=== PATIENT | male | born 1995 | race Caucasian/White ===

== ENCOUNTER 2017-05-29 11:43 | Emergency (ER) | payer OTHER ==
[~2017-05-29] VITALS: Ht 170.2 cm; Wt 117.6 kg
[~2017-05-29 11:43] MED LIST: FEXO3TAB
[2017-05-29 11:46] VITALS: TEMP 36.8; Ht 170.2 cm; Wt 117.6 kg
--- NOTE | 2017-05-29 12:34 | DIAGNOSTIC IMAGING REPORT ---
LEFT RIBS UNILATERAL WITH PA CHEST (5 views) CLINICAL HISTORY: Left rib pain COMPARISON STUDY: No previous studies for comparison. FINDINGS: The erect chest reveals no pneumothorax. There is no focal pulmonary consolidation. No left-sided rib fractures are visualized. No destructive lesions are evident. IMPRESSION: No active disease in the chest. No left-sided rib fractures are visualized. No pneumothorax. Electronically signed by: Nate Duran M.D. 05/29/2017 12:33 PM Dictated Date/Time: 05/29/2017 12:32 PM
--- NOTE | 2017-05-29 12:41 | EMERGENCY ROOM VISIT NOTE ---
ED Visit Note First contact with patient: 12:10 CHIEF COMPLAINT: Left rib pain HISTORY OF PRESENT ILLNESS: This 22-year-old male presents the ER with chief complaint of left upper rib pain. 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 The patient denies any shortness of breath. The patient denies any pain down his arms or any numbness and tingling. The patient has not taken anything for pain. The patient states that his work made him come here. REVIEW OF SYSTEMS: 6 system review was performed and was negative unless stated otherwise in history of present illness. PMH: The patient is healthy; there is no significant medical or surgical history. SOCIAL HISTORY: Patient lives with his . The patient admits to tobacco use but denies any alcohol use. PHYSICAL EXAM: Vital Signs: Were reviewed Reviewed Nurse's notes. GEN.: 22-year -old white male appears in no acute distress. MENTAL Status: Alert and oriented 3. LUNGS: Clear to auscultation and breath sounds equal, no wheezes, rales, or rhonchi. HEART: Heart sounds are regular without murmurs, ectopy, gallop, or rub. CHEST WALL: No gross bony deformity noted. The patient's tenderness palpation over the left upper anterior chest wall. Remainder chest wall is nontender. EMERGENCY DEPARTMENT COURSE: The patient was evaluated. The patient was offered pain medication but declined. X-ray of the left ribs was ordered and interpreted by the radiologist and myself. DIAGNOSTICS:LEFT RIBS UNILATERAL WITH PA CHEST (5 views) CLINICAL HISTORY: Left rib pain COMPARISON STUDY: No previous studies for comparison. FINDINGS: The erect chest reveals no pneumothorax. There is no focal pulmonary consolidation. No left-sided rib fractures are visualized. No destructive lesions are evident. IMPRESSION: No active disease in the chest. No left-sided rib fractures are visualized. No pneumothorax. Electronically signed by: Nate Duran M.D. 05/29/2017 12:33 PM The patient was informed of the findings. The patient was discharged home in stable condition. DIAGNOSIS: Muscle strain left chest wall TREATMENT and DISCHARGE INSTRUCTIONS: Ibuprofen 600 mg every 6 hours with food for pain. If symptoms persist or worsen, follow-up with family doctor. Off work for the remainder of the day. Current/Historical Medications Miscellaneous Medications Fexofenadine HCl (Mucinex Allergy) Allergies Coded Allergies: Amoxicillin (Verified Allergy, Unknown, ., 06/08/16) THROAT SWELLING, AND HIVES Vital Signs Date Time Temp Pulse Resp B/P (MAP) Pulse Ox O2 Delivery O2 Flow Rate FiO2 05/29/17 11:46 36.8 98 18 133/91 97 Room Air Departure Information Referrals No Doctor, Assigned (PCP) Patient Instructions [facility]
[2017-05-29 12:46] VITALS: BP 150/94; PULSE 95; O2SAT 96
== END 2017-05-29 12:46 | disposition home or self-care (01) ==
LOC: C.EDB 11:46 → C.EDD 12:46
DX: S29.011A Strain of muscle and tendon of front wall of thorax, initial encounter (principal); X58.XXXA Exposure to other specified factors, initial encounter; Y92.89 Other specified places as the place of occurrence of the external cause; Y99.0 Civilian activity done for income or pay; R07.81 Pleurodynia; F17.200 Nicotine dependence, unspecified, uncomplicated; Z88.1 Allergy status to other antibiotic agents

== ENCOUNTER 2017-06-29 09:57 | Emergency (ER) | payer OTHER ==
[~2017-06-29] VITALS: Ht 170.2 cm; Wt 120.7 kg
[2017-06-29 10:00] VITALS: TEMP 36.6; Ht 170.2 cm; Wt 120.7 kg
[2017-06-29] MEDS ORDERED: PROPARACAINE HCL 0.5% OP SOLN 15 ML BTL OP STA (10:28)
--- NOTE | 2017-06-29 10:43 | EMERGENCY ROOM VISIT NOTE ---
History Report prepared by Soco: Luis Antonio Kiran Under the Supervision of: Dr. Lake Clarke M.D. First contact with patient: 10:15 Chief Complaint: EYE ASSESSMENT Stated Complaint: RIGHT EYE History of Present Illness The patient is a 22 year old male who presents to the Emergency Room with complaints of constant right eye soreness for the past two days. The patient states that it hurts to close his right eye, and he states that it hurts on his right upper eye lid. He states that it feels like he has pink eye. The patient states that he does not feel anything in his eye. He denies any vision change, fever, chills, congestion, nausea, and vomiting. Source of History: patient Onset: two days ago Position: eye (right) Timing: constant Modifying Factors (Worsening): other (closing his eye) Associated Symptoms: No fevers, No chills, No nausea, No vomiting Review of Systems See HPI for pertinent positives and negatives. A total of ten systems were reviewed and were otherwise negative. Past Medical & Surgical Medical Problems: (1) No pertinent past medical history Family History Cancer Diabetes mellitus Heart disease Hypertension Social History Smoking Status: Current Some Day Smoker Alcohol Use: none Drug Use: none Occupation Status: employed Current/Historical Medications No Active Prescriptions or Reported Meds Allergies Coded Allergies: Amoxicillin (Verified Allergy, Unknown, ., 06/29/17) THROAT SWELLING, AND HIVES Physical Exam Vital Signs Date Time Temp Pulse Resp B/P (MAP) Pulse Ox O2 Delivery O2 Flow Rate FiO2 06/29/17 11:36 92 148/89 96 06/29/17 10:00 36.6 99 18 153/96 96 Room Air Physical Exam GENERAL: Awake, alert, well-appearing, in no distress HENT: Normocephalic, atraumatic. Oropharynx unremarkable. EYES: Slight swelling of the right lateral aspect of the upper eye lid. No erythema or warmth. No ocular discharge. Sclera and anterior chamber are clear. No foreign body appreciated under the eye lid. NECK: Supple. No nuchal rigidity. FROM. No JVD. RESPIRATORY: Clear to auscultation. CARDIAC: Regular rate, normal rhythm. Extremities warm and well perfused. Pulses equal. ABDOMEN: Soft, non-distended. No tenderness to palpation. No rebound or guarding. No masses. RECTAL: Deferred. MUSCULOSKELETAL: Chest examination reveals no tenderness. The back is symmetrical on inspection without obvious abnormality. There is no CVA tenderness to palpation. No joint edema. LOWER EXTREMITIES: Calves are equal size bilaterally and non-tender. No edema. No discoloration. NEURO: Normal sensorium. No sensory or motor deficits noted. SKIN: No rash or jaundice noted. Medical Decision & Procedures Medications Administered Medications (Trade) Dose Ordered Sig/Bryon Route Start Time Stop Time Status Last Admin Dose Admin Proparacaine HCl (Alcaine 0.5% Oph Soln) 1 drops NOW STAT OP 06/29/17 10:28 06/29/17 10:29 DC 06/29/17 10:33 1 DROPS Procedure Slit Lamp Examination Indication: rule out foreign body The right eye was prepped with topical proparacaine. Slit lamp examination was performed in the standard fashion. Cornea appeared clear. Anterior chamber clear. Scleral injection not present. No discharge present. Fluorescein examination performed and revealed no uptake. No foreign bodies noted. Negative Rajinder sign. The patient tolerated the procedure well without complication. ED Course 1022: The patient was evaluated in room A9. A complete history and physical exam was performed. 1028: Alcaine 0.5% Oph Soln 1 drop OP 1110: I reevaluated the patient, and performed a slit lamp exam. I discussed the treatment plan with the patient, and he was agreeable. He was discharged home. Medical Decision I reviewed the patient's past medical history, medications, and the nursing notes as described above. Differential diagnoses include: Stye, hordeolum, conjunctivitis, foreign body Patient is a 22 y/o man who presents to the ED with right eye lid pain and swelling per HPI. On arrival the patient is well-appearing, AFVSS. On exam has mild swelling of right upper lateral eye-lid. Sclera and conjunctiva without injection. Slit lamp exam with clear anterior chamber. No corneal abrasion, flourescene uptake or FB. No FB under eye lids. Findings most c/w hordeolum. Findings and plan for follow-up d/w patient. Patient agreeable and d/c'd per discharge instructions. Medication Reconcilliation Current Medication List: was personally reviewed by me Blood Pressure Screening Patient's blood pressure: Elevated blood pressure Blood pressure disposition: Elevated BP felt to be situational Impression Primary Impression: Hordeolum externum (stye) Scribe Attestation The scribe's documentation has been prepared under my direction and personally reviewed by me in its entirety. I confirm that the note above accurately reflects all work, treatment, procedures, and medical decision making performed by me. Departure Information Dispostion Home / Self-Care Prescriptions No Active Prescriptions or Reported Meds Referrals No Doctor, Assigned (PCP) Forms HOME CARE DOCUMENTATION FORM, IMPORTANT VISIT INFORMATION, WORK / SCHOOL INSTRUCTIONS Patient Instructions ED [place], My [facility] Additional Instructions Please follow up with your primary care physician in the next 1-3 days for re- evaluation. You have a stye (hordeolum), which is an inflamed sweat gland. Otherwise, your exam did not show signs of an emergent condition at this time. Apply warm compresses at 20 minute intervals throughout the day. Return to the emergency department for worsening symptoms as described in the accompanying instructions.
[2017-06-29 11:36] VITALS: BP 148/89; PULSE 92; O2SAT 96
== END 2017-06-29 11:37 | disposition home or self-care (01) ==
LOC: C.EDB 09:58 → C.EDA 11:37
DX: H00.011 Hordeolum externum right upper eyelid (principal); F17.200 Nicotine dependence, unspecified, uncomplicated; Z83.3 Family history of diabetes mellitus; Z82.49 Family history of ischemic heart disease and other diseases of the circulatory system

== ENCOUNTER 2017-07-27 20:36 | Emergency (ER) | payer OTHER ==
[~2017-07-27] VITALS: Ht 170.2 cm; Wt 124.3 kg
[2017-07-27 20:42] VITALS: TEMP 37; Ht 170.2 cm; Wt 124.3 kg
[2017-07-27] MEDS ORDERED: ALBUT/IPRATROP 3MG/0.5MG NEB 3 ML VIAL INH STA (21:33)
--- NOTE | 2017-07-27 21:38 | EMERGENCY ROOM VISIT NOTE ---
History Report prepared by Soco: Navi Key Under the Supervision of: Dr. Lake Clarke M.D. First contact with patient: 21:27 Chief Complaint: SHORTNESS OF BREATH Stated Complaint: SOB,CHEST PAIN,DIZZINESS Nursing Triage Summary: sob and dizziness ongoing for 5 months. worse tonight. seen pcp today and had EKG done that showed bundle branch block. no pain at this time. History of Present Illness The patient is a 22 year old male who presents to the Emergency Room with complaints of worsening shortness of breath that began 5 months ago. He received an ECG today which showed a bundle branch block. This evening, his symptoms worsened so he came to the ER. He denies any recent surgeries, long trips, or any past medical history. He is also experiencing back pain, dizziness , and a cough. He also has some congestion. He denies any chest pain, diarrhea, urinary symptoms, or swelling in his legs. His symptoms are worse with exertion. He has a family history of congestive heart failure and hemochromatosis. Source of History: patient Onset: 5 months ago Position: other (Respiratory System) Symptom Intensity: moderate Quality: other (Shortness of breath) Timing: worsening Modifying Factors (Worsening): exertion Associated Symptoms: + cough, + back pain, No chest pain Note: He is experiencing dizziness. He denies any swelling in his legs. Review of Systems See HPI for pertinent positives and negatives. A total of ten systems were reviewed and were otherwise negative. Past Medical & Surgical Medical Problems: (1) No pertinent past medical history Family History Cancer Diabetes mellitus Heart disease Hypertension Social History Smoking Status: Current Some Day Smoker Smokeless Tobacco Use: No Alcohol Use: none Drug Use: none Occupation Status: employed Current/Historical Medications No Active Prescriptions or Reported Meds Allergies Coded Allergies: Amoxicillin (Verified Allergy, Unknown, ., 06/29/17) THROAT SWELLING, AND HIVES Physical Exam Vital Signs Date Time Temp Pulse Resp B/P (MAP) Pulse Ox O2 Delivery O2 Flow Rate FiO2 07/27/17 23:41 77 18 131/71 95 07/27/17 22:51 86 18 125/70 96 Room Air 07/27/17 22:06 90 07/27/17 21:55 99 Room Air 07/27/17 20:44 97 Room Air 07/27/17 20:42 37.0 90 20 143/86 98 Room Air Physical Exam GENERAL: Awake, alert, well-appearing, in no distress HENT: Normocephalic, atraumatic. Dry mucous membranes. EYES: Normal conjunctiva. Sclera non-icteric. NECK: Supple. No nuchal rigidity. FROM. No JVD. RESPIRATORY: Diminished at both baselines but otherwise clear. CARDIAC: Regular rate, normal rhythm. Extremities warm and well perfused. Pulses equal. ABDOMEN: Soft, obese. No tenderness to palpation. No rebound or guarding. No masses. RECTAL: Deferred. MUSCULOSKELETAL: Chest examination reveals no tenderness. The back is symmetrical on inspection without obvious abnormality. There is no CVA tenderness to palpation. No joint edema. LOWER EXTREMITIES: Calves are equal size bilaterally and non-tender. Scant bilateral edema. No discoloration. Equal pulses. NEURO: Normal sensorium. No sensory or motor deficits noted. SKIN: No rash or jaundice noted. Medical Decision & Procedures ER Provider Diagnostic Interpretation: Radiology results as stated below per my review and radiologist interpretation: CHEST ONE VIEW PORTABLE HISTORY: Atypical CHEST PAIN COMPARISON: Chest 06/08/2016. FINDINGS: The lungs are clear. Cardiac silhouette is normal in size. No pleural effusions. No pneumothorax. IMPRESSION: No acute process. Electronically signed by: Rob Kelly M.D. 07/27/2017 9:56 PM Dictated Date/Time: 07/27/2017 9:55 PM Laboratory Results 07/27/17 22:00 Red Blood Count 4.98, Mean Corpuscular Volume 81.7, Mean Corpuscular Hemoglobin 26.9, Mean Corpuscular Hemoglobin Concent 32.9, Mean Platelet Volume 9.6, Neutrophils (%) (Auto) 64.3, Lymphocytes (%) (Auto) 24.5, Monocytes (%) (Auto) 6.0, Eosinophils (%) (Auto) 4.8, Basophils (%) (Auto) 0.1, Neutrophils # (Auto) 6.97, Lymphocytes # (Auto) 2.65, Monocytes # (Auto) 0.65, Eosinophils # (Auto) 0.52, Basophils # (Auto) 0.01 07/27/17 22:00 Test 07/27/17 22:00 White Blood Count 10.83 K/uL (4.8-10.8) Red Blood Count 4.98 M/uL (4.7-6.1) Hemoglobin 13.4 g/dL (14.0-18.0) Hematocrit 40.7 % (42-52) Mean Corpuscular Volume 81.7 fL (80-100) Mean Corpuscular Hemoglobin 26.9 pg (25-34) Mean Corpuscular Hemoglobin Concent 32.9 g/dl (32-36) Platelet Count 254 K/uL (130-400) Mean Platelet Volume 9.6 fL (7.4-10.4) Neutrophils (%) (Auto) 64.3 % Lymphocytes (%) (Auto) 24.5 % Monocytes (%) (Auto) 6.0 % Eosinophils (%) (Auto) 4.8 % Basophils (%) (Auto) 0.1 % Neutrophils # (Auto) 6.97 K/uL (1.4-6.5) Lymphocytes # (Auto) 2.65 K/uL (1.2-3.4) Monocytes # (Auto) 0.65 K/uL (0.11-0.59) Eosinophils # (Auto) 0.52 K/uL (0-0.5) Basophils # (Auto) 0.01 K/uL (0-0.2) RDW Standard Deviation 40.9 fL (36.4-46.3) RDW Coefficient of Variation 13.7 % (11.5-14.5) Immature Granulocyte % (Auto) 0.3 % Immature Granulocyte # (Auto) 0.03 K/uL (0.00-0.02) D-Dimer 270 ug/L FEU (0-500) Anion Gap 7.0 mmol/L (3-11) Est Creatinine Clear Calc Drug Dose 156.2 ml/min Estimated GFR () 133.6 Estimated GFR (Non- 115.3 BUN/Creatinine Ratio 11.8 (10-20) Calcium Level 8.5 mg/dl (8.5-10.1) Total Bilirubin 0.2 mg/dl (0.2-1) Direct Bilirubin < 0.1 mg/dl (0-0.2) Aspartate Amino Transf (AST/SGOT) 21 U/L (15-37) Alanine Aminotransferase (ALT/SGPT) 36 U/L (12-78) Alkaline Phosphatase 90 U/L (45-117) Troponin I < 0.015 ng/ml (0-0.045) Pro-B-Type Natriuretic Peptide 8 pg/ml (0-450) Total Protein 7.1 gm/dl (6.4-8.2) Albumin 3.4 gm/dl (3.4-5.0) Lipase 146 U/L (73-393) Laboratory results reviewed by me Medications Administered Medications (Trade) Dose Ordered Sig/Bryon Route Start Time Stop Time Status Last Admin Dose Admin Albuterol/ Ipratropium (Duoneb) 3 ml NOW STAT INH 07/27/17 21:33 07/27/17 21:36 DC 07/27/17 21:33 3 ML ECG Indication: SOB/dyspnea Rate (beats per minute): 88 Rhythm: normal sinus Findings: RBBB (incomplete), no acute ischemic change, other (QRS 104, normal axis) Comparison ECG Date: 29 May 2017 Change: no significant change ED Course 2126: The patient was evaluated in room B3. A complete history and physical exam was performed. 2132: Ordered DuoNeb 3 ml INH 0: Bedside US showed no pericardial effusion and grossly normal LV and RV size and function. 0: I reevaluated the patient. Discussed results and discharge instructions: He verbalized understanding and agreement. The patient is ready for discharge. Medical Decision I reviewed the patient's past medical history, medications, and the nursing notes as described above. Differential diagnosis includes but is not limited to: pneumonia, bronchitis, acute coronary syndrome, cardiomyopathy, pericarditis, and myocarditis. The patient is a 22 y/o gentleman with a family h/o hemochromatosis who presents to the ED with SOB and for the past couple of months per HPI. On arrival is in NAD, AFVSS. EKG with incomplete RBBB not significantly different from prior. CXR negative. Labs unremarkable, including negative Trop in the setting of constant sx. Heart score 2, low risk, ACS not likely. D-dimer negative PE not likely. Limited Bedside Echo unremarkable with no pericardial effusion and grossly normal LV and RV size and function. Findings and plan for follow-up d/w patient. Patient agreeable and d/c'd per discharge instructions. Medication Reconcilliation Current Medication List: was personally reviewed by me Blood Pressure Screening Patient's blood pressure: Normal blood pressure Blood pressure disposition: Did not require urgent referral Impression Primary Impression: Shortness of breath Scribe Attestation The scribe's documentation has been prepared under my direction and personally reviewed by me in its entirety. I confirm that the note above accurately reflects all work, treatment, procedures, and medical decision making performed by me. Departure Information Dispostion Home / Self-Care Prescriptions No Active Prescriptions or Reported Meds Referrals No Doctor, Assigned (PCP) Merritt Owusu MD Forms HOME CARE DOCUMENTATION FORM, IMPORTANT VISIT INFORMATION Patient Instructions ED Dyspnea Shortness of Breath, My [facility] Additional Instructions Please follow up with your primary care physician in the next 1-3 days for re- evaluation and contact our cardiology clinic to arrange for an appointment. The cause of your symptoms is unclear at this time. Otherwise, your exam, EKG, chest xray, lab results, and bedside ultrasound of your heart did not show signs of an emergent condition at this time. Return to the emergency department for worsening symptoms as described in the accompanying instructions.
[2017-07-27 21:55] VITALS: O2SAT 99
--- NOTE | 2017-07-27 21:57 | DIAGNOSTIC IMAGING REPORT ---
CHEST ONE VIEW PORTABLE HISTORY: Atypical CHEST PAIN COMPARISON: Chest 06/08/2016. FINDINGS: The lungs are clear. Cardiac silhouette is normal in size. No pleural effusions. No pneumothorax. IMPRESSION: No acute process. Electronically signed by: Rob Kelly M.D. 07/27/2017 9:56 PM Dictated Date/Time: 07/27/2017 9:55 PM
[2017-07-27 22:10] LABS: BASO % 0.1 %; BASO ABS # 0.01 K/uL (0-0.2); COMPLETE YES; EOS % 4.8 %; HEMATOCRIT 40.7 % (42-52); IG% 0.3 %; LYMPH % 24.5 %; LYMPH ABS # 2.65 K/uL (1.2-3.4); MEAN CELL VOLUME 81.7 fL (80-100); MEAN CORPUSCULAR HEMOGLOBIN 26.9 pg (25-34); MEAN CORPUSCULAR HGB CONC 32.9 g/dl (32-36); MEAN PLATELET VOLUME 9.6 fL (7.4-10.4); NEUT % 64.3 %; PLATELET COUNT 254 K/uL (130-400); RED BLOOD COUNT 4.98 M/uL (4.7-6.1); WHITE BLOOD COUNT 10.83 K/uL (4.8-10.8)
[2017-07-27 22:30] LABS: ALT/SGPT 36 U/L (12-78); BLOOD UREA NITROGEN 11 mg/dl (7-18); BUN/CREATININE RATIO 11.8 (10-20); CALCIUM 8.5 mg/dl (8.5-10.1); CARBON DIOXIDE 26 mmol/L (21-32); CHLORIDE 106 mmol/L (98-107); CREATININE 0.93 mg/dl (0.60-1.40); GLUCOSE 138 mg/dl (70-99); POTASSIUM 3.8 mmol/L (3.5-5.1); SODIUM 139 mmol/L (136-145)
[2017-07-27 22:36] LABS: ALKALINE PHOSPHATASE 90 U/L (45-117); AST/SGOT 21 U/L (15-37)
[2017-07-27 23:41] VITALS: BP 131/71; PULSE 77; O2SAT 95
== END 2017-07-27 23:41 | disposition home or self-care (01) ==
LOC: C.EDB 20:37
DX: R06.02 Shortness of breath (principal); M54.9 Dorsalgia, unspecified; R42 Dizziness and giddiness; R05 Cough; I45.10 Unspecified right bundle-branch block; F17.200 Nicotine dependence, unspecified, uncomplicated; Z83.3 Family history of diabetes mellitus; Z82.49 Family history of ischemic heart disease and other diseases of the circulatory system

== ENCOUNTER 2017-09-24 08:52 | Emergency (ER) | payer OTHER ==
[~2017-09-24] VITALS: Ht 170.2 cm; Wt 123.0 kg
[2017-09-24 08:58] VITALS: TEMP 36.9; Ht 170.2 cm; Wt 123.0 kg
--- NOTE | 2017-09-24 09:18 | EMERGENCY ROOM VISIT NOTE ---
History Report prepared by Soco: Yodit Lyons Under the Supervision of: Dr. Lizzy Vance M.D. First contact with patient: 09:04 Chief Complaint: RECTAL BLEEDING Stated Complaint: BLOOD IN STOOL History of Present Illness The patient is a 22 year old male who presents to the Emergency Room with complaints of persistent rectal bleeding that began this morning. The patient states that when he woke and had a bowel movement, he noticed blood in his stool. He denies any history of hemorrhoids. The patient does report that recently he has been taking Advil approximately one time per day for knee pain. He states that he does eat regularly with the medication. The patient denies any fever, hematemesis, diarrhea, constipation, or pain with his bowel movements. Source of History: patient Onset: this morning Position: other (rectal) Quality: other (bleeding) Timing: other (persistent) Associated Symptoms: + diarrhea Review of Systems See HPI for pertinent positives & negatives. A total of 10 systems reviewed and were otherwise negative. Past Medical & Surgical Medical Problems: (1) No pertinent past medical history Family History Cancer Diabetes mellitus Heart disease Hypertension Social History Smoking Status: Never Smoker Alcohol Use: none Drug Use: none Marital Status: single Occupation Status: employed Current/Historical Medications No Active Prescriptions or Reported Meds Allergies Coded Allergies: Amoxicillin (Verified Allergy, Unknown, ., 09/24/17) THROAT SWELLING, AND HIVES Physical Exam Vital Signs Date Time Temp Pulse Resp B/P (MAP) Pulse Ox O2 Delivery O2 Flow Rate FiO2 09/24/17 10:10 89 20 155/93 98 09/24/17 09:37 85 09/24/17 08:58 36.9 92 17 146/90 96 Room Air Physical Exam Vital signs reviewed. General: Well-appearing male, in no significant distress. HEENT: No scleral icterus, PERRLA, neck supple. Atraumatic. Cardiovascular: Regular rate and rhythm, no extra sounds. Pulmonary: Clear to auscultation bilaterally, normal work of breathing. Abdomen: Obese. Soft, nontender, nondistended, positive bowel sounds. Rectal: Guaiac negative brown stool. Musculoskeletal: Atraumatic, no peripheral edema. Neurologic: Patient awake alert and oriented x 3 Skin: Warm, dry, no rash Medical Decision & Procedures Laboratory Results 09/24/17 09:18 Red Blood Count 5.46, Mean Corpuscular Volume 81.3, Mean Corpuscular Hemoglobin 26.9, Mean Corpuscular Hemoglobin Concent 33.1, Mean Platelet Volume 9.9, Neutrophils (%) (Auto) 72.2, Lymphocytes (%) (Auto) 17.3, Monocytes (%) (Auto) 7.0, Eosinophils (%) (Auto) 3.1, Basophils (%) (Auto) 0.1, Neutrophils # (Auto) 5.58, Lymphocytes # (Auto) 1.34, Monocytes # (Auto) 0.54, Eosinophils # (Auto) 0.24, Basophils # (Auto) 0.01 09/24/17 09:18 Test 09/24/17 09:18 White Blood Count 7.73 K/uL (4.8-10.8) Red Blood Count 5.46 M/uL (4.7-6.1) Hemoglobin 14.7 g/dL (14.0-18.0) Hematocrit 44.4 % (42-52) Mean Corpuscular Volume 81.3 fL (80-100) Mean Corpuscular Hemoglobin 26.9 pg (25-34) Mean Corpuscular Hemoglobin Concent 33.1 g/dl (32-36) Platelet Count 258 K/uL (130-400) Mean Platelet Volume 9.9 fL (7.4-10.4) Neutrophils (%) (Auto) 72.2 % Lymphocytes (%) (Auto) 17.3 % Monocytes (%) (Auto) 7.0 % Eosinophils (%) (Auto) 3.1 % Basophils (%) (Auto) 0.1 % Neutrophils # (Auto) 5.58 K/uL (1.4-6.5) Lymphocytes # (Auto) 1.34 K/uL (1.2-3.4) Monocytes # (Auto) 0.54 K/uL (0.11-0.59) Eosinophils # (Auto) 0.24 K/uL (0-0.5) Basophils # (Auto) 0.01 K/uL (0-0.2) RDW Standard Deviation 40.1 fL (36.4-46.3) RDW Coefficient of Variation 13.5 % (11.5-14.5) Immature Granulocyte % (Auto) 0.3 % Immature Granulocyte # (Auto) 0.02 K/uL (0.00-0.02) Anion Gap 3.0 mmol/L (3-11) Est Creatinine Clear Calc Drug Dose 182.8 ml/min Estimated GFR () 146.7 Estimated GFR (Non- 126.6 BUN/Creatinine Ratio 19.2 (10-20) Calcium Level 8.5 mg/dl (8.5-10.1) Total Bilirubin 0.2 mg/dl (0.2-1) Direct Bilirubin < 0.1 mg/dl (0-0.2) Aspartate Amino Transf (AST/SGOT) 20 U/L (15-37) Alanine Aminotransferase (ALT/SGPT) 39 U/L (12-78) Alkaline Phosphatase 100 U/L (45-117) Total Protein 7.9 gm/dl (6.4-8.2) Albumin 3.7 gm/dl (3.4-5.0) Laboratory results per my review. ED Course 0906: Past medical records reviewed. The patient was evaluated in room A3. A complete history and physical examination was performed. 1008: The test results and treatment plan were discussed with the patient. He verbalized complete understanding and agreement. He is ready to go home. Medical Decision Differential diagnosis: Etiologies such as diverticulosis, AVM, coagulopathy, colitis, inflammatory bowel disease, malignancy, Mary-Pressley tear, esophagitis, peptic ulcer disease , variceal bleed, gastritis, epistaxis, fissure, hemorrhoids, as well as others were entertained. This pt was evaluated and appeared to be in no distress. IV access was obtained and lab work was drawn. Rectal exam was normal and stool guaiac negative. He was advised to increase the fiber and water in her diet. Lab work was WNL. He will f/u with a PCP GLORIA. Pt will return to the ED for worsening of symptoms or any medical concerns. Medication Reconcilliation Current Medication List: was personally reviewed by me Impression Primary Impression: Rectal bleeding Scribe Attestation The scribe's documentation has been prepared under my direction and personally reviewed by me in its entirety. I confirm that the note above accurately reflects all work, treatment, procedures, and medical decision making performed by me. Departure Information Dispostion Home / Self-Care Prescriptions No Active Prescriptions or Reported Meds Referrals No Doctor, Assigned (PCP) Forms HOME CARE DOCUMENTATION FORM, IMPORTANT VISIT INFORMATION, WORK / SCHOOL INSTRUCTIONS Patient Instructions My [facility] [employer] Additional Instructions Diagnosis: Rectal bleeding Please maintain a high-fiber diet. Drink plenty of clear fluids. Please establish with a primary care physician as soon as possible for further management. Return to the ER for worsening of symptoms, heavier rectal bleeding or any medical concerns.
[2017-09-24 09:28] LABS: BASO % 0.1 %; BASO ABS # 0.01 K/uL (0-0.2); COMPLETE YES; EOS % 3.1 %; HEMATOCRIT 44.4 % (42-52); IG% 0.3 %; LYMPH % 17.3 %; LYMPH ABS # 1.34 K/uL (1.2-3.4); MEAN CELL VOLUME 81.3 fL (80-100); MEAN CORPUSCULAR HEMOGLOBIN 26.9 pg (25-34); MEAN CORPUSCULAR HGB CONC 33.1 g/dl (32-36); MEAN PLATELET VOLUME 9.9 fL (7.4-10.4); NEUT % 72.2 %; PLATELET COUNT 258 K/uL (130-400); RED BLOOD COUNT 5.46 M/uL (4.7-6.1); WHITE BLOOD COUNT 7.73 K/uL (4.8-10.8)
[2017-09-24 09:49] LABS: ALT/SGPT 39 U/L (12-78); AST/SGOT 20 U/L (15-37); BLOOD UREA NITROGEN 15 mg/dl (7-18); BUN/CREATININE RATIO 19.2 (10-20); CALCIUM 8.5 mg/dl (8.5-10.1); CARBON DIOXIDE 27 mmol/L (21-32); CHLORIDE 107 mmol/L (98-107); CREATININE 0.79 mg/dl (0.60-1.40); GLUCOSE 91 mg/dl (70-99); POTASSIUM 4.3 mmol/L (3.5-5.1); SODIUM 137 mmol/L (136-145)
[2017-09-24 09:52] LABS: ALKALINE PHOSPHATASE 100 U/L (45-117)
[2017-09-24 10:10] VITALS: BP 155/93; PULSE 89; O2SAT 98
== END 2017-09-24 10:11 | disposition home or self-care (01) ==
LOC: C.EDB 08:53 → C.EDA 10:11
DX: K62.5 Hemorrhage of anus and rectum (principal); Z83.3 Family history of diabetes mellitus; Z82.49 Family history of ischemic heart disease and other diseases of the circulatory system

== ENCOUNTER 2018-05-28 03:38 | Inpatient (IN) | payer OTHER ==
[~2018-05-28] VITALS: Ht 170.2 cm; Wt 111.9 kg
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
[2018-05-28 04:17] LABS: BASO % 0.1 %; BASO ABS # 0.01 K/uL (0-0.2); EOS % 0.4 %; EOS ABS # 0.05 K/uL (0-0.5); HEMATOCRIT 44.7 % (42-52); HEMOGLOBIN 15.1 g/dL (14.0-18.0); IG# 0.04 K/uL (0.00-0.02); LYMPH % 9.7 %; LYMPH ABS # 1.35 K/uL (1.2-3.4); MEAN CELL VOLUME 81.9 fL (80-100); MEAN CORPUSCULAR HEMOGLOBIN 27.7 pg (25-34); MEAN CORPUSCULAR HGB CONC 33.8 g/dl (32-36); MEAN PLATELET VOLUME 10.6 fL (7.4-10.4); MONO % 5.8 %; MONO ABS # 0.81 K/uL (0.11-0.59); NEUT % 83.7 %; NEUT ABS # 11.62 K/uL (1.4-6.5); PLATELET COUNT 253 K/uL (130-400); RED CELL DISTRIBUTION WIDTH CV 14.2 % (11.5-14.5); RED CELL DISTRIBUTION WIDTH SD 41.9 fL (36.4-46.3); WHITE BLOOD COUNT 13.88 K/uL (4.8-10.8)
[2018-05-28 04:35] LABS: BLOOD UREA NITROGEN 13 mg/dl (7-18); CREATININE 0.87 mg/dl (0.60-1.40); GLUCOSE 95 mg/dl (70-99)
[2018-05-28 04:36] LABS: ALBUMIN 3.9 gm/dl (3.4-5.0); ALKALINE PHOSPHATASE 101 U/L (45-117); ALT/SGPT 29 U/L (12-78); AST/SGOT 15 U/L (15-37); CALCIUM 8.5 mg/dl (8.5-10.1); CARBON DIOXIDE 23 mmol/L (21-32); POTASSIUM 3.8 mmol/L (3.5-5.1); SODIUM 136 mmol/L (136-145)
[2018-05-28 08:14] VITALS: O2SAT 99
[2018-05-28] MEDS ORDERED: ALUMINUM/MAGNESIUM SUSP 30 ML UDC PO PRN (08:15)
[2018-05-28] MEDS ORDERED: ACETAMINOPHEN 325 MG TAB PO PRN (08:15)
[2018-05-28] MEDS ORDERED: BISMUTH SUBSALICYLATE PER ML OMNICELL CHARGE PO PRN (08:15)
[2018-05-28] MEDS ORDERED: SODIUM CHLORIDE 0.65% NA SOLN 45 ML (OCEAN) PRN (08:15)
[2018-05-28] MEDS ORDERED: MAGNESIUM HYDROXIDE SUSP 30 ML UDC PO PRN (08:15)
[2018-05-28] MEDS ORDERED: hydrOXYzine HCL 25 MG TAB PO PRN ×2 (08:15)
[2018-05-28 09:00] VITALS: BP 148/86; PULSE 94; TEMP 36.8; Ht 170.2 cm; Wt 111.9 kg
[2018-05-28 09:51] VITALS: BP_SYST 125; BP_SYST 144; BP_DIAS 78; BP_DIAS 79; PULSE 100; TEMP 36.6
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
[2018-05-29 06:54] VITALS: BP_SYST 123; BP_SYST 125; BP_SYST 128; BP_DIAS 70; BP_DIAS 78; BP_DIAS 82; PULSE 100; PULSE 81; PULSE 91; TEMP 36.6; TEMP 37.9
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
[2018-05-30 06:28] VITALS: BP_SYST 112; BP_SYST 116; BP_DIAS 74; BP_DIAS 81; PULSE 82; PULSE 91; TEMP 36.6
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
[2018-05-31 06:51] VITALS: BP_SYST 123; BP_SYST 132; BP_DIAS 83; BP_DIAS 89; PULSE 80; PULSE 84; TEMP 36.7
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
== END 2018-05-31 11:10 | disposition home or self-care (01) | DRG 886 ==
LOC: C.EDB 03:39 → C.MHU 08:03
PROVIDERS: ADMIT Psychiatry & Neurology Psychiatry; ATTEND Psychiatry & Neurology Psychiatry
DX: F63.9 Impulse disorder, unspecified (principal); E66.9 Obesity, unspecified; F17.200 Nicotine dependence, unspecified, uncomplicated; Z83.3 Family history of diabetes mellitus; Z81.8 Family history of other mental and behavioral disorders